=== PATIENT | male | born 1970 | race Caucasian/White ===

== ENCOUNTER 2025-07-21 15:20 | Inpatient (IN) | payer OTHER ==
[~2025-07-21 15:20] MED LIST: Iopamidol-370 76% 500 ML MDV (1 ML CHARGE) ONE
[2025-07-21 15:56] LABS: Actual Bicarbonate (HCO3v) 25.4 mEq/L (22-28); Analyzer IN Cardio ER; Base Excess 2.0 mEq/L (-2.0 to +3.0); Calcium, Ionized (venous) 1.15 mmol/L (1.16-1.32); Chloride (VBG) 101 mmol/L (98-106); Hematocrit-VBG 42 % (42.0-52.0); Hemoglobin (Hb) 14.4 g/dL (13.1-17.2); Potassium (VBG) 4.39 mmol/L (3.70-5.30); Sodium 134 mmol/L (133-146)
[2025-07-21 16:00] LABS: #Basophils 0.05 10x3/uL (0.0-0.2); #Eosinophils 0.06 10x3/uL (0.0-0.7); #Monocytes 1.72 10x3/uL (0.11-0.59); #Neutrophils 17.88 10x3/uL (1.40-6.50); %Basophils 0.2 % (0.0-1.0); %Eosinophils 0.3 % (0.0-10.0); %Lymphocytes 8.3 % (21.0-51.0); %Monocytes 7.9 % (0.0-10.0); %Neutrophils 82.7 % (42.0-75.0); Hematocrit 40.2 % (42.0-52.0); Hemoglobin 13.2 g/dL (14.0-18.0); Mean Corpuscular Hemoglobin 28.4 pg (27.0-31.0); Mean Corpuscular Volume 86.6 fL (78.0-98.0); Platelet Count 204 10x3/uL (130-400); Red Blood Cell (RBC) Count 4.64 mill/uL (4.70-6.10); White Blood Cell (WBC) Count 21.65 10x3/uL (4.8-10.8)
[2025-07-21 16:15] LABS: INR-International Normal Ratio 1.1; PTT 29.4 sec (22.9-36.1); Prothrombin Time 13.9 sec (12.0-14.7)
[2025-07-21 16:46] LABS: ALT (SGPT) 26 U/L (Less than 45); AST (SGOT) 22 U/L (11-34); Albumin 3.1 g/dL (3.1-4.5); Alkaline Phosphatase 119 U/L (40-110); Anion Gap 14 mmol/L (10-20); BUN (Urea Nitrogen) 19 mg/dL (8.4-25.7); Bilirubin, Total 0.9 mg/dL (0.3-1.2); Calc. Creatinine Clearance 0 mL/min (70-130); Calcium 9.3 mg/dL (7.8-10.44); Carbon Dioxide 21 mmol/L (22-29); Chloride 101 mmol/L (98-107); Globulin 3.4 g/dL (2.4-3.5); Glucose 502 mg/dL (70-105); Lipase 44 U/L (8-78); Potassium 4.4 mmol/L (3.5-5.1); Sodium 132 mmol/L (136-145)
[2025-07-21] MEDS ORDERED: Cefepime 2 GM VIAL ONE (17:05)
[2025-07-21] MEDS ORDERED: VANCOMYCIN 2 GRAM/400 ML BAG ONE (17:06)
[2025-07-21 17:11] LABS: Bacteria/HPF None Seen HPF (None Seen); CAUTI Indications for Culture Alt mental st,lethar; Glucose, Urine (Dipstick) Greater than 1000 mg/dL (Negative); Leukocyte Negative Leu/uL (Negative); Protein, Urine (Dipstick) Negative (Neg-Trace); RBC/HPF 0-3 HPF (0-3); Specific Gravity, Urine 1.035 (1.002-1.036); WBC/HPF 0-3 HPF (0-3)
[2025-07-21 17:13] LABS: Urine Culture Reflex No No
[2025-07-21 18:07] LABS: #Basophils 0.06 10x3/uL (0.0-0.2); #Eosinophils 0.06 10x3/uL (0.0-0.7); #Monocytes 1.62 10x3/uL (0.11-0.59); #Neutrophils 16.29 10x3/uL (1.40-6.50); %Basophils 0.3 % (0.0-1.0); %Eosinophils 0.3 % (0.0-10.0); %Lymphocytes 9.6 % (21.0-51.0); %Monocytes 8.1 % (0.0-10.0); %Neutrophils 81.1 % (42.0-75.0); Hematocrit 40.8 % (42.0-52.0); Hemoglobin 13.2 g/dL (14.0-18.0); Mean Corpuscular Hemoglobin 28.7 pg (27.0-31.0); Mean Corpuscular Volume 88.7 fL (78.0-98.0); Platelet Count 206 10x3/uL (130-400); Red Blood Cell (RBC) Count 4.60 mill/uL (4.70-6.10); White Blood Cell (WBC) Count 20.08 10x3/uL (4.8-10.8)
[2025-07-21 18:31] LABS: ALT (SGPT) 26 U/L (Less than 45); AST (SGOT) 16 U/L (11-34); Albumin 3.0 g/dL (3.1-4.5); Alkaline Phosphatase 112 U/L (40-110); Anion Gap 12 mmol/L (10-20); BUN (Urea Nitrogen) 18 mg/dL (8.4-25.7); Bilirubin, Total 0.8 mg/dL (0.3-1.2); Calc. Creatinine Clearance 0 mL/min (70-130); Calcium 9.0 mg/dL (7.8-10.44); Carbon Dioxide 26 mmol/L (22-29); Chloride 101 mmol/L (98-107); Globulin 3.4 g/dL (2.4-3.5); Glucose 393 mg/dL (70-105); Lipase 43 U/L (8-78); Potassium 3.9 mmol/L (3.5-5.1); Sodium 135 mmol/L (136-145)
[2025-07-21] MEDS ORDERED: Ondansetron PF 4 MG/2 ML Vial IVP PRN (18:40)
[2025-07-21] MEDS ORDERED: Calcium Carbonate 500 MG ChewTAB PO PRN (18:40)
[2025-07-21] MEDS ORDERED: Dextrose 50% Abboject 50 ML SYRINGE SLOW IVP PRN (18:40)
[2025-07-21] MEDS ORDERED: Glucagon 1 MG/ML KIT IM PRN (18:40)
[2025-07-21] MEDS ORDERED: Pharmacy to Dose VANC/CEFEPIME IVPB PRN (18:48)
[2025-07-21 20:22] VITALS: BMI 49.1
[2025-07-21] MEDS: Insulin Glargine 30 UNITS/0.3 ML VIAL SC SCH (21:23)
[2025-07-22 03:45] LABS: #Basophils 0.04 10x3/uL (0.0-0.2); #Eosinophils 0.15 10x3/uL (0.0-0.7); #Monocytes 1.12 10x3/uL (0.11-0.59); #Neutrophils 8.59 10x3/uL (1.40-6.50); %Basophils 0.3 % (0.0-1.0); %Eosinophils 1.2 % (0.0-10.0); %Lymphocytes 17.3 % (21.0-51.0); %Monocytes 9.3 % (0.0-10.0); %Neutrophils 71.4 % (42.0-75.0); Hematocrit 42.0 % (42.0-52.0); Hemoglobin 13.3 g/dL (14.0-18.0); Mean Corpuscular Hemoglobin 28.2 pg (27.0-31.0); Mean Corpuscular Volume 89.2 fL (78.0-98.0); Platelet Count 191 10x3/uL (130-400); Red Blood Cell (RBC) Count 4.71 mill/uL (4.70-6.10); White Blood Cell (WBC) Count 12.05 10x3/uL (4.8-10.8)
[2025-07-22 04:46] LABS: Vancomycin, Random 11.4 ug/mL (See Comment)
[2025-07-22 04:50] LABS: ALT (SGPT) 26 U/L (Less than 45); AST (SGOT) 18 U/L (11-34); Albumin 3.1 g/dL (3.1-4.5); Alkaline Phosphatase 104 U/L (40-110); Anion Gap 12 mmol/L (10-20); BUN (Urea Nitrogen) 15 mg/dL (8.4-25.7); Bilirubin, Total 0.5 mg/dL (0.3-1.2); Calc. Creatinine Clearance 186 mL/min (70-130); Calcium 8.6 mg/dL (7.8-10.44); Carbon Dioxide 24 mmol/L (22-29); Cardiac Risk 5.2 (Less than 4.5); Chloride 106 mmol/L (98-107); Cholesterol 131 mg/dl (< 200 Desired); Globulin 3.7 g/dL (2.4-3.5); Glucose 308 mg/dL (70-105); HDL Cholesterol 25 mg/dL (>60 Neg Risk); LDL Cholesterol, Calculated 84 mg/dL; Magnesium 2.0 mg/dL (1.6-2.6); Potassium 4.1 mmol/L (3.5-5.1); Sodium 138 mmol/L (136-145); Triglycerides 112 mg/dL (Less than 150)
[2025-07-22] MEDS: Senokot S 8.6-50 MG TAB PO PRN (09:21)
[2025-07-22] MEDS: Acetaminophen 325 MG TAB PO PRN (09:21)
[2025-07-22] MEDS: Aspirin Chewable 81 MG TAB PO SCH (09:22)
[2025-07-22] MEDS: Enoxaparin 40 MG (0.4 mL) SYRINGE SC SCH (09:23)
[2025-07-22] MEDS: Insulin Glargine 30 UNITS/0.3 ML VIAL SC SCH ×2 (09:24→20:17)
[2025-07-22] MEDS: Magnesium 2 GM/50 ML(in water) 2 GM in Premix 1 BAG IVPB SCH (10:16)
[2025-07-22] MEDS: VANCOMYCIN 1.75 GM/350 ML Premix BAG IVPB SCH (10:38)
[2025-07-22] MEDS: metFORMIN 500 MG TAB PO SCH ×2 (12:44→17:32)
[2025-07-22] MEDS ORDERED: Insulin Glargine 30 UNITS/0.3 ML VIAL SC SCH ×2 (12:46→21:00)
[2025-07-22] MEDS: HYDROcodone/Acetaminophen 5/325 mg Tablet PO PRN (20:17)
[2025-07-23 05:21] LABS: #Basophils 0.04 10x3/uL (0.0-0.2); #Eosinophils 0.34 10x3/uL (0.0-0.7); #Monocytes 1.12 10x3/uL (0.11-0.59); #Neutrophils 7.13 10x3/uL (1.40-6.50); %Basophils 0.4 % (0.0-1.0); %Eosinophils 3.0 % (0.0-10.0); %Lymphocytes 22.3 % (21.0-51.0); %Monocytes 10.0 % (0.0-10.0); %Neutrophils 63.7 % (42.0-75.0); Hematocrit 42.4 % (42.0-52.0); Hemoglobin 13.5 g/dL (14.0-18.0); Mean Corpuscular Hemoglobin 28.4 pg (27.0-31.0); Mean Corpuscular Volume 89.1 fL (78.0-98.0); Platelet Count 219 10x3/uL (130-400); Red Blood Cell (RBC) Count 4.76 mill/uL (4.70-6.10); White Blood Cell (WBC) Count 11.20 10x3/uL (4.8-10.8)
[2025-07-23 05:36] LABS: Anion Gap 16 mmol/L (10-20); BUN (Urea Nitrogen) 16 mg/dL (8.4-25.7); Calc. Creatinine Clearance 252 mL/min (70-130); Calcium 8.5 mg/dL (7.8-10.44); Carbon Dioxide 21 mmol/L (22-29); Chloride 108 mmol/L (98-107); Glucose 305 mg/dL (70-105); Potassium 4.1 mmol/L (3.5-5.1); Sodium 141 mmol/L (136-145)
[2025-07-23] MEDS: Insulin Glargine 30 UNITS/0.3 ML VIAL SC SCH ×2 (08:48→20:11)
[2025-07-23] MEDS ORDERED: Bisacodyl 10 MG SUPP PR PRN (09:29)
[2025-07-23] MEDS ORDERED: Insulin Glargine 30 UNITS/0.3 ML VIAL SC SCH (21:00)
[2025-07-24 04:41] LABS: #Basophils 0.03 10x3/uL (0.0-0.2); #Eosinophils 0.35 10x3/uL (0.0-0.7); #Monocytes 1.09 10x3/uL (0.11-0.59); #Neutrophils 6.74 10x3/uL (1.40-6.50); %Basophils 0.3 % (0.0-1.0); %Eosinophils 3.2 % (0.0-10.0); %Lymphocytes 24.8 % (21.0-51.0); %Monocytes 9.9 % (0.0-10.0); %Neutrophils 60.9 % (42.0-75.0); Hematocrit 42.2 % (42.0-52.0); Hemoglobin 13.9 g/dL (14.0-18.0); Mean Corpuscular Hemoglobin 28.6 pg (27.0-31.0); Mean Corpuscular Volume 86.8 fL (78.0-98.0); Platelet Count 228 10x3/uL (130-400); Red Blood Cell (RBC) Count 4.86 mill/uL (4.70-6.10); White Blood Cell (WBC) Count 11.05 10x3/uL (4.8-10.8)
[2025-07-24 04:51] LABS: Anion Gap 11 mmol/L (10-20); BUN (Urea Nitrogen) 17 mg/dL (8.4-25.7); Calc. Creatinine Clearance 272 mL/min (70-130); Calcium 8.9 mg/dL (7.8-10.44); Carbon Dioxide 25 mmol/L (22-29); Chloride 107 mmol/L (98-107); Glucose 222 mg/dL (70-105); Potassium 4.0 mmol/L (3.5-5.1); Sodium 139 mmol/L (136-145)
[2025-07-24] MEDS: Transdermal Patch Removal LIDOCAINE TOP SCH (05:44)
[2025-07-24 17:31] VITALS: BP 152/95; TEMP 98
[2025-07-24] MEDS ORDERED: Transdermal Patch Removal TOP SCH (21:00)
== END 2025-07-24 17:32 | disposition home or self-care (01) | DRG 638 ==
LOC: SUATTDRO 15:20 → ERS 15:20 → T4-B 18:26
PROVIDERS: ADMIT Internal Medicine; ATTEND Student in an Organized Health Care Education/Training Program
DX: E11.65 Type 2 diabetes mellitus with hyperglycemia (principal); Z68.42 Body mass index [BMI] 45.0-49.9, adult; J44.9 Chronic obstructive pulmonary disease, unspecified; D72.829 Elevated white blood cell count, unspecified; M25.511 Pain in right shoulder; K59.00 Constipation, unspecified; Z72.0 Tobacco use; E66.01 Morbid (severe) obesity due to excess calories
CPT/HCPCS: 36415; 36416; 71045; 74177; 80048; 80053; 80061; 80202; 80307; 81001; 82010; 82140; 82805; 83036; 83605; 83690; 83735; 84145; 84443; 84484; 85025; 85610; 85730; 86141; 87040; 93005; 93306; 96360; 96361; 96365; 96367; J0692; J1650; J1815; J3375; J3475; J7030; Q9967